=== PATIENT | male | born 1980 | race Two or more races ===

== ENCOUNTER 2025-07-19 15:21 | Inpatient (IN) | payer MEDICAID ==
[~2025-07-19] VITALS: Ht 188 cm; Wt 79.5 kg
[~2025-07-19 15:21] MED LIST: HYDR-4383 PO
[2025-07-19 16:11] LABS: MEAN PLATELET VOLUME 7.7 FL (7.4-10.4); RED CELL DISTRIBUTION WIDTH 16.5 % (11.5-14.5)
[2025-07-19 16:32] LABS: CREATININE 0.56 MG/DL (0.60-1.10); TOTAL CARBON DIOXIDE 24.6 MMOL/L (24-32); eCRCL 183 ML/MIN; eGFR > 90 ML/MIN
--- NOTE | 2025-07-19 16:49 | Physician Documentation ---
History of Present Illness ~ Chief Complaint: ETOH Stated Complaint: ETOH Time Seen by MD: 19:17 HPI This is an otherwise well-appearing 45-year-old male who presents requesting assistance with the cessation of alcohol use, patient reports alcohol use just prior to arrival. Reports history of heavy alcohol abuse. Patient states he gets severe tremors when he has tried to quit drinking. He states he has had to your sober recently but states he has been on a very heavy [place] the last few weeks of drinking copious amounts of alcohol and he is terrified of with drawing off alcohol. He has no other concern or complaint at this time. He states he has severe anxiety and did vomit prior to arrival. Tetanus within 5 years?: No Medication Reconciliation Allergies: Coded Allergies: No Known Allergies (Unverified , 11/11/17) Scheduled Hydrocodone/Acetaminophen ([place] 5-325 Tablet), 1 TAB PO TID PRN Past Medical History Past Medical History: No Pertinent History Past Surgical History: no surgical history Lives with: Spouse, Family Lives In: Home Review of Systems ROS As stated above in the HPI, otherwise all systems are reviewed and negative. Physical Exam Vital Signs: Temperature: 98.3, Source: Temporal, Heart Rate: 105, Respiratory Rate: 18, BP: 144/103, Pulse Oximetry: 96, Weight: 79.550 Oxygen Flow Rate: 0 Physical Exam General: Awake and Alert, no acute distress. Patient is very anxious. HEENT: Conjunctiva pink, Sclera clear, Mucus Membranes moist. Neck: Supple without masses and tenderness. Resp: Unlabored. Lungs clear to auscultation bilaterally. Heart: Regular Rate and rhythm, normal S1 and S2 without murmur, rub or gallop. Abdomen: Soft and non tender no organomegaly Extremities: No cyanosis,clubbing or edema. Skin: Warm and Dry. Progress Results/Orders Results/Orders Orders - SHRUTHI CLARKE PAC Saline Lock (07/19/25 ) Page Hospitalist (07/19/25 21:48) Fill Out Med Reconciliation (07/19/25 21:48) Completed Orders - SHRUTHI CLARKE PAC Normal Saline 1000ml (0.9% Sodium Chlori (07/19/25 20:40) Prochlorperazine Inj (Compazine Inj) (07/19/25 20:45) Olanzapine Tablet (Zyprexa Tablet) (07/19/25 21:41) Medications Received in ER Medications (Trade) Dose Ordered Sig/Heidi Route PRN Reason Start Time Stop Time Status Last Admin Dose Admin Sodium Chloride 1,000 ml @ 1,000 mls/hr ONCE STAT IV 07/19/25 20:40 07/19/25 21:39 DC 07/19/25 22:11 1,000 MLS/HR (Compazine inj) 10 mg ONCE STAT IV 07/19/25 20:45 07/19/25 20:52 DC 07/19/25 22:43 10 MG (ZyPREXA I.M. IM ONLY) 10 mg ONCE ONCE IM 07/19/25 22:25 07/19/25 22:26 DC 07/19/25 22:50 10 MG (Valium inj) 10 mg ONCE ONCE IV 07/19/25 22:25 07/19/25 22:26 DC 07/19/25 22:43 10 MG Vital Signs 07/19/25 07/19/25 07/19/25 15:29 20:27 20:30 Temp 98.3 Pulse 105 67 Resp 18 20 16 B/P (MAP) 144/103 127/91 (103) Pulse Ox 96 98 O2 Flow Rate 0 Laboratory Tests Test 07/19/25 16:01 White Blood Count 3.3 L Red Blood Count 5.33 Hemoglobin 14.1 Hematocrit 42.7 Mean Corpuscular Volume 80.1 Mean Corpuscular Hemoglobin 26.5 L Mean Corpuscular Hemoglobin Concent 33.0 Red Cell Distribution Width 16.5 H Platelet Count 82 L Mean Platelet Volume 7.7 Neutrophils (%) (Auto) 55.1 Lymphocytes (%) (Auto) 27.6 Monocytes (%) (Auto) 14.1 H Eosinophils (%) (Auto) 2.2 Basophils (%) (Auto) 1.0 Neutrophils # (Auto) 1.8 Lymphocytes # (Auto) 0.9 L Monocytes # (Auto) 0.5 Eosinophils # (Auto) 0.1 Basophils # (Auto) 0.0 CBC Comment Sodium Level 135 Potassium Level 3.9 Chloride Level 97 L Carbon Dioxide Level 24.6 Anion Gap 13 Blood Urea Nitrogen 3 L Creatinine 0.56 L Estimated GFR/1.73 m2 > 90 BUN/Creatinine Ratio 5.4 L Glucose Level 167 H Hemoglobin A1c 6.8 H Calcium Level 8.6 Total Bilirubin 0.9 Aspartate Amino Transf (AST/SGOT) 92 H Alanine Aminotransferase (ALT/SGPT) 48 Alkaline Phosphatase 162 H Total Protein 8.6 H Albumin 4.0 Globulin 4.6 H Albumin/Globulin Ratio 0.9 L Lipase 60 Chemistry Comments Ethyl Alcohol Level 366 H Medical Decision Making Findings This is an otherwise well-appearing 45-year-old male who presents requesting assistance with the cessation of alcohol use, patient reports alcohol use just prior to arrival. Reports history of heavy alcohol abuse. Patient states he gets severe tremors when he has tried to quit drinking. He states he has had to your sober recently but states he has been on a very heavy [place] the last few weeks of drinking copious amounts of alcohol and he is terrified of with drawing off alcohol. He has no other concern or complaint at this time. He states he has severe anxiety and did vomit prior to arrival. Patient did have initial CIWA score of 18. Patient will be admitted for alcohol withdrawal. Patient's initial blood alcohol level was 366. I did consult with hospitalist for further eval and treatment. Patient was given Zyprexa 5 mg by mouth in the ED tonight to help treat anxiety in help him sleep. Departure Disposition: ADMITTED INPATIENT Admitted to Inpatient Unit: to hospitalist Admission Level of Care: Med/Surg Impression: Primary Impression: Alcohol withdrawal syndrome Qualified Codes: F10.930 - Alcohol use, unspecified with withdrawal, uncomplicated Additional Impressions: Alcohol abuse Alcohol dependence Qualified Codes: F10.220 - Alcohol dependence with intoxication, uncomplicated Alcoholic intoxication Qualified Codes: F10.920 - Alcohol use, unspecified with intoxication, uncomplicated Condition: Stable Discharge Instructions: Alcohol Intoxication Additional Instructions: Patient did have initial CIWA score of 18. Patient will be admitted for alcohol withdrawal. Patient's initial blood alcohol level was 366. I did consult with hospitalist for further eval and treatment. Patient was given Zyprexa 5 mg by mouth in the ED tonight to help treat anxiety in help him sleep. Referrals: NO PRIMARY CARE PROVIDER (PCP) Signature Scribe Signature: No scribe Attestation: No scribe TRAM AREVALO WARP SPLITTER Jul 19, 2025 16:49 SHRUTHI CLARKE Jul 19, 2025 23:11
[2025-07-19 20:09] LABS: ETHANOL 366 MG/DL (<10)
[2025-07-19] MEDS: normal saline 1000ml 1,000 ML IV STA (22:11)
[2025-07-19] MEDS ORDERED: potassium Cl 40MEQ/1/2NS 520ml 520 ML IV PRN (22:35)
[2025-07-19] MEDS ORDERED: magnesium sulf-water 2g/50mL 50 ML IV PRN (22:35)
[2025-07-19] MEDS ORDERED: potassium Cl 20 mEq SR tablet PO PRN ×2 (22:35)
[2025-07-19] MEDS ORDERED: magnesium Cl slow-release 64mg tablet PO PRN (22:35)
[2025-07-19] MEDS ORDERED: magnesium sulf-water 4G/100mL 100 ML IV PRN (22:35)
[2025-07-19] MEDS ORDERED: ondansetron/PF 4mg/2ml inj IV PRN (22:35)
[2025-07-19] MEDS ORDERED: DEXTROSE 15 GM of carb/4 tabs (each vial/BOTTLE has 4 tablets) PO PRN ×2 (22:40)
[2025-07-19] MEDS ORDERED: dextrose 50%-water 50ml dispensing syringe IV PRN ×2 (22:40)
[2025-07-19] MEDS ORDERED: glucagon, human recombinant 1mg kit SUBCUT PRN (22:40)
[2025-07-19] MEDS: diazepam inj 5 MG/ML inj. IV ONE (22:43)
[2025-07-19] MEDS: OLANZapine **IM** 10 mg inj. IM ONE (22:50)
[2025-07-19] MEDS ORDERED: METF-1203 PO (23:12)
[2025-07-19] MEDS ORDERED: PANT40TA54 PO (23:12)
[2025-07-19] MEDS ORDERED: NALT50TA5 PO (23:12)
--- NOTE | 2025-07-19 23:36 | HISTORY AND PHYSICAL-Residence ---
History & Physical Providers to CC Resident Creating Document: NEIL GARCIAAGUSTIN ~ History of Present Illness Reason for Admit\Complaint: ETOH Withdrawal History of Present Illness The patient is a 45-year-old Thai-speaking male with limited Georgian proficiency, history of alcohol use disorder and alcoholic liver cirrhosis, who presents to the ED with alcohol withdrawal symptoms. His and autistic son are present at bedside and assists with the history. He reports heavy alcohol use since age 14, drinking approximately 30 beers daily. His last alcohol intake was in the hospital parking lot just prior to arrival, where he consumed six beers. He describes feeling tremulous, anxious, and extremely nervous. On exam, he is severely agitated, diaphoretic with beads of sweat on his forehead, and demonstrates tremor with arms extended. He denies nausea, vomiting, hallucination, or seizures. However, he does report a prior episode of auditory hallucination two months ago at home, without seizures. He has not had recent infectious symptoms. Past significant events include an admission at [facility] three years ago for massive esophageal variceal bleeding, during which she required ICU care with intubation and removal of 6 L of ascitic fluid. At this visit, he is tearful and emotionally distressed, repeatedly stating he wants to quit drinking and asking for help. Allergies: Coded Allergies: No Known Allergies (Unverified , 11/11/17) Home Medications Home Medications Active [place] 5-325 Tablet (Hydrocodone/Acetaminophen) 1 Each Tablet 1 Tab PO TID PRN 5 Days Reported Naltrexone Hcl 50 Mg Tablet 1 Tab PO DAILY Pantoprazole Sodium 40 Mg Tablet. 1 Tab PO BID Metformin HCl 500 Mg Tablet 1 Tab PO BID Past Medical History Past Medical History Heavy alcohol use disorder, alcohol withdrawal, history of massive esophageal varices bleeding; admitted at [facility] in ICU, required intubation Past Surgical History Surgical History Comment Noncontributory Past Social History Social History Comment Heavy alcohol use disorder; 30 pack of beers per day. Denies smoking or recreational drugs. Lives with his in his autistic son. Lives with: Spouse, Family Lives In: Home ROS All Other Systems: Reviewed and Negative ROS As stated above in the HPI, otherwise all systems are reviewed and negative. Exam Vitals: Vital Signs Date Time Temp Pulse Resp B/P (MAP) Pulse Ox O2 Delivery O2 Flow Rate FiO2 07/19/25 20:30 16 07/19/25 20:27 67 98 07/19/25 15:29 98.3 0 General: Severely agitated, diaphoretic HEENT: Conjunctiva pink, Sclera clear, Mucus Membranes dry Neck: Supple without masses and tenderness. Resp: Unlabored. Lungs clear to auscultation bilaterally. Heart: Regular Rate and rhythm, normal S1 and S2 without murmur, rub or gallop. Abdomen: Soft and non tender no organomegaly Extremities: Tremulous while arms extended Neurology: No neurological deficit Skin: Warm and Dry. Diagnostic Data Last Recorded Lab Results: 07/19/25 1601 07/19/25 1601 Advance Care Planning Advanced Care plannin - 30 Minutes Additional Plan Assessment and plan 45-year-old Thai-speaking male with alcohol use disorder and alcoholic cirrhosis, presenting with alcohol withdrawal. History significant for prior esophageal variceal bleeding (ICU admission, intubation, paracentesis for 6 L ascites, three years ago) and auditory hallucination two months ago. Currently severely agitated, anxious, tremulous, diaphoretic, denies nausea, vomiting, seizure, or or hallucination at this visit. Last drink just prior to ED arrival. 1. Alcohol Withdrawal; KYREE (Alcohol Withdrawal Symptoms): Autonomic symptoms; palpitations, sweating, tachycardia,severe agitation, tremor, diaphoresis, and anxiety CIWA-Ar Score: 20 Symptom-triggered regimen for KYREE - CIWA protocol in place Fixed-schedule regimen for KYREE: Ativan 2 mg every 6 hours scheduled Transition to P.O: Transition to Chlordiazepoxide 25 mg PO every 6 hours on day 1, every 8 hours on day 2, every12 hours on day 3, every 24 hours (at night) on days 4 and 5, then discontinue Continue thiamine and folic acid IV visitor services assistant consulted Monitor for delirium tremens; hallucinations, seizure, autonomic instability 2. Alcoholic cirrhosis/decompensation risk History of massive variciel bleeding, and large volume ascites Current labs; AST > ALT (classic alcoholic pattern), alk-phos elevated, albumin preserved at four, bilirubin normal Lactulose, carvedilol, and spironolactone started, continue after discharge Follow up abdominal ultrasound and serum alpha fetoprotein Follow up on PT, APTT, and INR Monitor for GI bleed monitor for GI bleeding Monitor INR bilirubin, creatinine, sodium for MELD calculation. INR pending now 3. Cytopenias (thrombocytopenia and leukopenia) Platelet [id number], WBC 3.3, consistent with portal hypertension and marrow suppression Monitor CBC daily 4. Type 2 diabetes mellitus A1c 6.8, diet controlled Not on home medications Currently controlled with diet and lifestyle Hyperglycemia/hypoglycemia protocol in place 5. Psychosocial/addiction support Patient is motivated, explicitly asking for help to quit drinking Involve addiction medicine, and social work for rehab options, and long-term recovery planning Code status: Full code DVT prophylaxis: Lovenox Disposition: Admitted to PCU for severe alcohol withdrawal, monitoring for cirrhosis complications, cytopenias, and potential GI bleeding Neil Garcia Internal Medicine Resident I discussed the assessment and plan with the resident and agree with it with no changes. Kate Gutierrez MD Critical Care Date of Service: Jul 19, 2025 Billing Provider: KATE GUTIERREZ MD,NEIL, RES Jul 19, 2025 23:36 KATE GUTIERREZ MD Jul 20, 2025 20:30
[2025-07-19 23:45] LABS: LEUKOCYTE ESTERASE ,URINE NEGATIVE (Neg); NITRITES, URINE NEGATIVE (Neg); OCCULT BLOOD,URINE NEGATIVE (Neg)
[2025-07-19 23:46] LABS: UA COLLECTION TYPE URINAL
[2025-07-20] VITALS (10 sets, daily range): BP systolic 103–135; BP diastolic 70–82; PULSE 69–93; RESP 10–18; TEMP 96.9–97.6; O2SAT 94–100
[2025-07-20 00:07] LABS: URINE AMPHETAMINE SCREEN NEGATIVE (Neg); URINE BARBITUATE SCREEN NEGATIVE (Neg); URINE BENZODIAZEPINES SCREEN POSITIVE (Neg); URINE CANNABINOID SCREEN NEGATIVE (Neg); URINE COCAINE SCREEN NEGATIVE (Neg); URINE METHADONE SCREEN NEGATIVE (Neg); URINE OPIATE SCREEN NEGATIVE (Neg); URINE PHENCYCLIDINE SCREEN NEGATIVE (Neg)
[2025-07-20] MEDS: enoxaparin 40mg/0.4ml syringe SQ SCH (00:10)
[2025-07-20] MEDS: normal saline 1000ml 1,000 ML IV SCH (00:15)
[2025-07-20 06:58] LABS: APTT 31 SECONDS (22-32); INR 1.2 INR
[2025-07-20 06:59] LABS: MEAN PLATELET VOLUME 8.3 FL (7.4-10.4); RED CELL DISTRIBUTION WIDTH 16.5 % (11.5-14.5)
[2025-07-20] MEDS: INSULIN LISPRO 100 UNIT/ML INSULN.PEN MULTI-DOSE SQ SCH (07:00)
[2025-07-20 07:13] LABS: CHOL/HDL RATIO 2.0 (0.00-4.99); CREATININE 0.59 MG/DL (0.60-1.10); LDL CHOLESTEROL 65 MG/DL (50-100); PHOSPHORUS 3.7 MG/DL (2.3-4.5); TOTAL CARBON DIOXIDE 24.6 MMOL/L (24-32); eCRCL 174 ML/MIN; eGFR > 90 ML/MIN
[2025-07-20 07:52] LABS: BASOPHILS % (MANUAL) 1.0 % (0-1); EOSINOPHILS % (MANUAL) 5.0 % (0-6); LARGE PLATELETS FEW; LYMPHOCYTES % (MANUAL) 29.0 % (21-51); MONOCYTES % (MANUAL) 11.0 % (2-12); NEUTROPHILS % (MANUAL) 54.0 % (42-75); PLATELET ESTIMATE DECREASED
[2025-07-20] MEDS ORDERED: heparin, porcine 5000 units/ml vial SQ SCH (08:00)
[2025-07-20] MEDS: K and/or MAG REPLACEMENT MC SCH (08:00)
[2025-07-20] MEDS: multivitamins, therapeutics tablet PO SCH (08:39)
[2025-07-20] MEDS: thiamine 100mg/ml 2ml inj. IV SCH (08:40)
[2025-07-20] MEDS: lactulose 20gm/30ml cup PO SCH (08:40)
--- NOTE | 2025-07-20 09:21 | RADIOLOGY REPORT ---
INDICATION: h/o alcoholic cirrhosis TECHNIQUE: Multiple real-time sonographic images of the abdomen were obtained. COMPARISON: None FINDINGS: Hepatic cirrhosis. Liver measures 16 cm. The gallbladder wall measures 0.3 cm and is unremarkable. No gallstones or sludge is seen. The commo n duct measures 0.3 cm and is unremarkable. No pericholecystic fluid is noted. The right kidney measures 12.9 cm. No hydronephrosis. The pancreas is not well visualized due to obscuration from bowel gas. The visualized portions of the IVC and aorta are grossly unremarkable. IMPRESSION: Hepatic cirrhosis. Gallbladder sludge Small pericholecystic fluid.
[2025-07-20] MEDS ORDERED: VITA400T10 PO (11:44)
[2025-07-20] MEDS ORDERED: CHOL20003 PO (11:44)
[2025-07-20] MEDS ORDERED: CHLO25CA10 PO (11:44)
[2025-07-20] MEDS ORDERED: VITA-268 PO (11:44)
--- NOTE | 2025-07-20 12:29 | PROGRESS NOTE- Residence ---
Progress Note - Resident Providers to CC Resident Creating Document: FADIA COFFEY RES ~ Antibiotic Timeout Antibiotic Ordered?: No Subjective Patient is seen and examined at bedside. He is awake, tolerating oral diet, denies any more tremors or nausea. He is interested in resources to stop drinking. Objective Vital Signs Date Time Temp Pulse Resp B/P (MAP) Pulse Ox O2 Delivery O2 Flow Rate FiO2 07/20/25 08:40 93 07/20/25 08:00 12 95 Room Air 07/20/25 06:00 96.9 104/70 (81) 2.0 Result Diagram: 07/20/25 0553 07/20/25 0553 General: awake, alert, oriented HEENT: Conjunctiva pink, Sclera clear, Mucus Membranes dry Neck: Supple without masses and tenderness. Resp: Unlabored. Lungs clear to auscultation bilaterally. Heart: Regular Rate and rhythm, normal S1 and S2 without murmur, rub or gallop. Abdomen: Soft and non tender no organomegaly Extremities: Trace hand tremor. Neurology: No neurological deficit Skin: Warm and Dry. Coagulation Studies Laboratory Tests Test 07/20/25 05:53 Prothrombin Time 12.1 SECONDS (9.0-12.0) H INR International Normalized Ratio 1.2 INR Activated Partial Thromboplast Time 31 SECONDS (22-32) Coagulation Comments Plan Plan Assessment and plan 45-year-old German-speaking male with alcohol use disorder and alcoholic cirrhosis, admitted for alcohol withdrawal. History significant for prior esophageal variceal bleeding (ICU admission, intubation, paracentesis for 6 L ascites, three years ago) and auditory hallucination two months ago. At presentation he was severely agitated, anxious, tremulous, diaphoretic, denies nausea, vomiting, seizure, or or hallucination at this visit. Last drink just prior to ED arrival. He doesn't have any other complaint. He is now able to tolerate oral diet. 1.Alcohol Withdrawal; Assessment: KYREE (Alcohol Withdrawal Symptoms): Autonomic symptoms; palpitations, sweating, tachycardia,severe agitation, tremor, diaphoresis, and anxiety at presentation CIWA-Ar Score: 20 Plan Symptom-triggered regimen for KYREE - CIWA protocol in place Fixed-schedule regimen for KYREE: Ativan 2 mg every 6 hours scheduled Transition to P.O: Transition to Chlordiazepoxide 25 mg PO every 6 hours on day 1, every 8 hours on day 2, every12 hours on day 3, every 24 hours (at night) on days 4 and 5, then discontinue Continue thiamine and folic acid IV cargo and ramp services manager consulted 07/20/2025 Continue alcohol withdraw protocol Continue fall and aspiration precautions Plan to decrease NS if he continues to accept oral diet 2. Alcoholic cirrhosis - compensated Assessment Child-Osborn A History of massive variciel bleeding, and large volume ascites Current labs; AST > ALT (classic alcoholic pattern), alk-phos elevated, albumin preserved at four, bilirubin normal Plan Lactulose, carvedilol, and spironolactone started, continue after discharge Follow up abdominal ultrasound and serum alpha fetoprotein Follow up on PT, APTT, and INR Monitor for GI bleed monitor for GI bleeding Monitor INR bilirubin, creatinine, sodium for MELD calculation. INR pending now 07/20/25 AST 72, ALT 42, INR 12.1 Abdomen US: Hepatic cirrhosis. Gallbladder sludge. Small pericholecystic fluid. Pending AFP 3. thrombocytopenia and leukopenia Assessement Platelet [id number], WBC 3.3, consistent with portal hypertension and marrow suppression Plan - 07/20/25 Platelet [id number], WBC 2.2, Hb 12.6, MCV 80.3 Hb 12.6 Monitor CBC daily The patient will need outpatient hematology follow-up 4. Type 2 diabetes mellitus - controlled Assessment A1c 6.8, diet controlled Not on home medications Currently controlled with diet and lifestyle Plan - 07/20/2025 Hyperglycemia/hypoglycemia protocol in place Patient might benefit of oral antiglycemic therapy Code Status: Full code DVT prophylaxis: Lovenox Analgesia: Tylenol Line/tube: PIV GI prophylaxis: Pantoprazole Nutrition: 75 carg diet Prognosis: Guarded Disposition: Continue medical treatment. Resident MD attestation The above note has been reviewed and supervised by a senior resident PGY2/PGY3 Patient was seen, examined and discussed with the attending physician Date of Service: Jul 20, 2025 Billing Provider: EWA GUIDO MD Common Visit Codes: [id number] INP/OBS CARE(HIGH) FADIA COFFEY RES Jul 20, 2025 12:29 EWA GUIDO MD Jul 20, 2025 18:36
[2025-07-21 02:00] VITALS: BP 136/78; PULSE 66; RESP 20; TEMP 97.4; O2SAT 94
[2025-07-21 06:00] VITALS: BP 106/72; PULSE 73; RESP 20; TEMP 97.4; O2SAT 97
[2025-07-21 07:04] LABS: MEAN PLATELET VOLUME 8.0 FL (7.4-10.4); RED CELL DISTRIBUTION WIDTH 16.5 % (11.5-14.5)
[2025-07-21 07:12] LABS: APTT 30 SECONDS (22-32); INR 1.2 INR
[2025-07-21 07:49] LABS: BANDS% (MANUAL) 1.0 % (0-10); EOSINOPHILS % (MANUAL) 1.0 % (0-6); LYMPHOCYTES % (MANUAL) 24.0 % (21-51); MONOCYTES % (MANUAL) 10.0 % (2-12); NEUTROPHILS % (MANUAL) 64.0 % (42-75); PLATELET ESTIMATE DECREASED
[2025-07-21] MEDS: pantoprazole 40mg Tablet.DR PO SCH (07:53)
[2025-07-21 07:58] LABS: CREATININE 0.60 MG/DL (0.60-1.10); PHOSPHORUS 3.1 MG/DL (2.3-4.5); TOTAL CARBON DIOXIDE 26.2 MMOL/L (24-32); eCRCL 171 ML/MIN; eGFR > 90 ML/MIN
[2025-07-21 08:10] VITALS: RESP 18; O2SAT 97
[2025-07-21 08:20] VITALS: BP_SYST 131; PULSE 85
[2025-07-21] MEDS ORDERED: MULT-25 PO (10:57)
[2025-07-21] MEDS ORDERED: THIA100T70 PO (10:57)
[2025-07-21] MEDS ORDERED: FOLI1TAB27 PO (10:57)
--- NOTE | 2025-07-21 11:51 | DISCHARGE SUMMARY-Residence ---
Discharge Summary Providers to CC Resident Creating Document: FADIA COFFEY RES ~ Discharge Summary Admission Diagnosis: ETHO withdrawal, alcoholic liver cirrhosis Hospital Course DATE OF ADMISSION: 07/19/2025 DATE OF DISCHARGE: 07/21/2025 Abdomen ultrasound: Hepatic cirrhosis. Gallbladder sludge. Small pericholecystic fluid. Laboratory Tests Test 07/19/25 16:01 07/19/25 22:59 07/20/25 00:05 07/20/25 00:21 White Blood Count 3.3 X10'3 Red Blood Count 5.33 X10'6 Hemoglobin 14.1 g/dl Hematocrit 42.7 % Mean Corpuscular Volume 80.1 FL Mean Corpuscular Hemoglobin 26.5 PG Mean Corpuscular Hemoglobin Concent 33.0 g/dL Red Cell Distribution Width 16.5 % Platelet Count 82 X10'3 Mean Platelet Volume 7.7 FL Neutrophils (%) (Auto) 55.1 % Lymphocytes (%) (Auto) 27.6 % Monocytes (%) (Auto) 14.1 % Eosinophils (%) (Auto) 2.2 % Basophils (%) (Auto) 1.0 % Neutrophils # (Auto) 1.8 X10'3 Lymphocytes # (Auto) 0.9 X10'3 Monocytes # (Auto) 0.5 X10'3 Eosinophils # (Auto) 0.1 X10'3 Basophils # (Auto) 0.0 X10'3 CBC Comment Sodium Level 135 MMOL/L Potassium Level 3.9 MMOL/L Chloride Level 97 MMOL/L Carbon Dioxide Level 24.6 MMOL/L Anion Gap 13 Blood Urea Nitrogen 3 MG/DL Creatinine 0.56 MG/DL Estimated GFR/1.73 m2 > 90 ML/MIN BUN/Creatinine Ratio 5.4 Glucose Level 167 MG/DL Hemoglobin A1c 6.8 % Calcium Level 8.6 MG/DL Total Bilirubin 0.9 MG/DL Aspartate Amino Transf (AST/SGOT) 92 U/L Alanine Aminotransferase (ALT/SGPT) 48 U/L Alkaline Phosphatase 162 IU/L Total Protein 8.6 G/DL Albumin 4.0 G/DL Globulin 4.6 G/DL Albumin/Globulin Ratio 0.9 Lipase 60 U/L Chemistry Comments Ethyl Alcohol Level 366 MG/DL Urine Specimen Description Urinal Urine Color Yellow Urine Clarity Clear Urine pH 6.0 Urine Specific [place] <=1.005 Urine Protein Negative mg/dl Urine Glucose (UA) Negative mg/dl Urine Ketones Negative mg/dl Urine Occult Blood Negative Urine Nitrite Negative Urine Bilirubin Negative Urine Urobilinogen 0.2 E.U/dL Urine Leukocyte Esterase Negative Urine Culture Indicated Not ind Volume Urine Centrifuged 10 ml Urine Comment Urine Opiates Screen Negative Urine Methadone Screen Negative Urine Fentanyl Screen Negative Urine Barbiturates Screen Negative Urine Phencyclidine Screen Negative Urine Amphetamines Screen Negative Urine Benzodiazepines Screen Positive Urine Cocaine Screen Negative Urine Cannabinoids Screen Negative Drug Screen Comment Glucometer 113 mg/dl Test 07/20/25 05:53 07/20/25 07:07 07/20/25 12:30 07/20/25 17:08 White Blood Count 2.2 X10'3 Red Blood Count 4.69 X10'6 Hemoglobin 12.6 g/dl Hematocrit 37.7 % Mean Corpuscular Volume 80.3 FL Mean Corpuscular Hemoglobin 26.9 PG Mean Corpuscular Hemoglobin Concent 33.5 g/dL Red Cell Distribution Width 16.5 % Platelet Count 58 X10'3 Mean Platelet Volume 8.3 FL Neutrophils (%) (Auto) 49.0 % Lymphocytes (%) (Auto) 33.1 % Monocytes (%) (Auto) 14.2 % Eosinophils (%) (Auto) 2.3 % Basophils (%) (Auto) 1.4 % Neutrophils # (Auto) 1.1 X10'3 Lymphocytes # (Auto) 0.7 X10'3 Monocytes # (Auto) 0.3 X10'3 Eosinophils # (Auto) 0.1 X10'3 Basophils # (Auto) 0.0 X10'3 CBC Comment Differential Total Cells Counted 100 Neutrophils % (Manual) 54.0 % Lymphocytes % (Manual) 29.0 % Monocytes % (Manual) 11.0 % Eosinophils % (Manual) 5.0 % Basophils % (Manual) 1.0 % Platelet Estimate Decreased Large Platelets Few Red Blood Cell Morphology Perf Basophilic Stippling Anisocytosis 1+ Prothrombin Time 12.1 SECONDS INR International Normalized Ratio 1.2 INR Activated Partial Thromboplast Time 31 SECONDS Coagulation Comments Sodium Level 138 MMOL/L Potassium Level 3.8 MMOL/L Chloride Level 104 MMOL/L Carbon Dioxide Level 24.6 MMOL/L Anion Gap 9 Blood Urea Nitrogen 3 MG/DL Creatinine 0.59 MG/DL Estimated GFR/1.73 m2 > 90 ML/MIN BUN/Creatinine Ratio 5.1 Glucose Level 90 MG/DL Calcium Level 8.0 MG/DL Phosphorus Level 3.7 MG/DL Magnesium Level 1.8 MG/DL Total Bilirubin 0.9 MG/DL Aspartate Amino Transf (AST/SGOT) 72 U/L Alanine Aminotransferase (ALT/SGPT) 42 U/L Alkaline Phosphatase 139 IU/L Total Protein 7.7 G/DL Albumin 3.6 G/DL Globulin 4.1 G/DL Albumin/Globulin Ratio 0.9 Triglycerides Level 79 MG/DL Cholesterol Level 164 MG/DL LDL Cholesterol 65 MG/DL HDL Cholesterol 81 MG/DL Cholesterol/HDL Ratio 2.0 Amylase Level 58 U/L Lipase 45 U/L Chemistry Comments Glucometer 90 mg/dl 185 mg/dl 141 mg/dl Test 07/20/25 20:08 07/21/25 06:12 07/21/25 07:32 Glucometer 250 mg/dl 109 mg/dl White Blood Count 1.9 X10'3 Red Blood Count 4.58 X10'6 Hemoglobin 12.3 g/dl Hematocrit 37.0 % Mean Corpuscular Volume 80.8 FL Mean Corpuscular Hemoglobin 26.8 PG Mean Corpuscular Hemoglobin Concent 33.2 g/dL Red Cell Distribution Width 16.5 % Platelet Count 40 X10'3 Mean Platelet Volume 8.0 FL Neutrophils (%) (Auto) 62.6 % Lymphocytes (%) (Auto) 20.7 % Monocytes (%) (Auto) 13.0 % Eosinophils (%) (Auto) 2.7 % Basophils (%) (Auto) 1.0 % Neutrophils # (Auto) 1.2 X10'3 Lymphocytes # (Auto) 0.4 X10'3 Monocytes # (Auto) 0.2 X10'3 Eosinophils # (Auto) 0.1 X10'3 Basophils # (Auto) 0.0 X10'3 CBC Comment Differential Total Cells Counted 100 Neutrophils % (Manual) 64.0 % Band Neutrophils % 1.0 % Lymphocytes % (Manual) 24.0 % Monocytes % (Manual) 10.0 % Eosinophils % (Manual) 1.0 % Platelet Estimate Decreased Red Blood Cell Morphology Perf Basophilic Stippling Anisocytosis 1+ Prothrombin Time 12.4 SECONDS INR International Normalized Ratio 1.2 INR Activated Partial Thromboplast Time 30 SECONDS Coagulation Comments Sodium Level 135 MMOL/L Potassium Level 3.6 MMOL/L Chloride Level 102 MMOL/L Carbon Dioxide Level 26.2 MMOL/L Anion Gap 7 Blood Urea Nitrogen 4 MG/DL Creatinine 0.60 MG/DL Estimated GFR/1.73 m2 > 90 ML/MIN BUN/Creatinine Ratio 6.7 Glucose Level 112 MG/DL Calcium Level 8.4 MG/DL Phosphorus Level 3.1 MG/DL Magnesium Level 1.8 MG/DL Total Bilirubin 1.5 MG/DL Aspartate Amino Transf (AST/SGOT) 79 U/L Alanine Aminotransferase (ALT/SGPT) 43 U/L Alkaline Phosphatase 158 IU/L Total Protein 7.3 G/DL Albumin 3.4 G/DL Globulin 3.9 G/DL Albumin/Globulin Ratio 0.9 Amylase Level 64 U/L Lipase 49 U/L Chemistry Comments Discharge Diagnosis\Comment: 1.Alcohol Withdrawal; 2. Alcoholic cirrhosis - compensated; 3. thrombocytopenia and leukopenia; 4. Type 2 diabetes mellitus - controlled Operations\Procedures: None Consultants: None Complications: None Condition on DC: Stable New Medications: Thiamine Mononitrate (Vitamin B-1) 100 Mg Tablet 1 TAB PO DAILY for 30 Days, #30 TAB 0 Refills Folic Acid* (Folic Acid*) Y Tab 1 MG PO DAILY for 30 Days, #30 TAB Multivitamin with Folic Acid (Thera Tablet) 400 Mcg Tablet 1 EACH PO Q24H for 30 Days, #30 TAB Continued Medications: Chlordiazepoxide HCl (Chlordiazepoxide HCl) 25 Mg Capsule 1 TAB PO DAILY Cholecalciferol (Vitamin D3) (Vitamin D3) 50 Mcg (2000 Unit) Tablet 1 TAB PO DAILY for 30 Days, #30 TAB 0 Refills Metformin HCl (Metformin HCl) 500 Mg Tablet 1 TAB PO BID Naltrexone Hcl (Naltrexone Hcl) 50 Mg Tablet 1 TAB PO DAILY Pantoprazole Sodium (Pantoprazole Sodium) 40 Mg Tablet.dr 1 TAB PO BID Vitamin E Mixed (Vitamin E) 400 Unit Tablet 1 TAB PO DAILY for 30 Days, #30 TAB 0 Refills Discontinued Medications: Vitamin B Complex (B Complex) 1 Each Tablet 1 TAB PO DAILY for 30 Days, #30 TAB 0 Refills Discharge Summary: HPI at presentation The patient is a 45-year-old history of alcohol use disorder and alcoholic liver cirrhosis, who presents to the ED with alcohol withdrawal symptoms. His and autistic son are present at bedside and assists with the history. He reports heavy alcohol use since age 14, drinking approximately 30 beers daily. His last alcohol intake was in the hospital parking lot just prior to arrival, where he consumed six beers. He describes feeling tremulous, anxious, and extremely nervous. On exam, he is severely agitated, diaphoretic with beads of sweat on his forehead, and demonstrates tremor with arms extended. He denies nausea, vomiting, hallucination, or seizures. However, he does report a prior episode of auditory hallucination two months ago at home, without seizures. He has not had recent infectious symptoms. Past significant events include an admission at [facility] three years ago for massive esophageal variceal bleeding, during which she required ICU care with intubation and removal of 6 L of ascitic fluid. At this visit, he is tearful and emotionally distressed, repeatedly stating he wants to quit drinking and asking for help. Hospital course 45-year-old with alcohol use disorder and alcoholic cirrhosis, admitted for alcohol withdrawal. History significant for prior esophageal variceal bleeding (ICU admission, intubation, paracentesis for 6 L ascites, three years ago) and auditory hallucination two months ago. At presentation he was severely agitated, anxious, tremulous, diaphoretic, denies nausea, vomiting, seizure, or or hallucination at this visit. Last drink just prior to ED arrival. He doesn't have any other complaint. He is now able to tolerate oral diet. During hospitalization the patient remained asymptomatic, tolerating oral diet without nausea, vomiting or abdominal pain. He asks to be discharge because he needs to go for a fingerprint. No complications seen while in the hospital. Patient is stable to be discharged. Discharge physical exam General: awake, alert, oriented HEENT: Conjunctiva pink, Sclera clear, Mucus Membranes slightly dry Neck: Supple without masses and tenderness. Resp: Unlabored. Lungs clear to auscultation bilaterally. Heart: Regular Rate and rhythm, normal S1 and S2 without murmur, rub or gallop. Abdomen: Soft and non tender no organomegaly Extremities: Trace hand tremor. Neurology: No neurological deficit Skin: Warm and Dry. Discharge medications Described above Discharge instructions Follow-up with your primary care physician in 1-2 weeks Follow-up with hematology to further investigation of the hematologic changes Abstain from alcohol use Repeat your liver enzimes with your PCP in 1 week Take metformin 500mg twice a day Take folic acid, thiamine and pantoprazole daily Eat a carb controlled diet and exercise regularly Fall precautions Do not drive under influence of alcohol Come back in case of vomiting, abdominal pain, persistent fever, diarrhea, chest pain, shortness of breath or any concerning symptoms *Problems/Diagnosis: (1) Diabetes mellitus Status: Chronic (2) Thrombocytopenia Status: Chronic (3) Leukopenia Status: Chronic (4) Alcohol withdrawal syndrome Status: Acute (5) Alcohol abuse Status: Chronic (6) Alcoholic intoxication Status: Acute (7) Alcohol dependence Status: Chronic Total Time Spent on D/C: > 30 Minutes Date of Service: Jul 21, 2025 Billing Provider: EWA GUIDO MD Common Visit Codes: 62841-[id number] DISCH DAY >30min Problem Qualifiers (1) Diabetes mellitus: Diabetes mellitus type: type 2 (2) Alcohol withdrawal syndrome: Complication of substance-induced condition: uncomplicated Qualified Codes: F10.930 - Alcohol use, unspecified with withdrawal, uncomplicated (3) Alcoholic intoxication: Complication of substance-induced condition: uncomplicated Qualified Codes: F10.920 - Alcohol use, unspecified with intoxication, uncomplicated (4) Alcohol dependence: Substance use status: with intoxication Complication of substance-induced condition: uncomplicated Qualified Codes: F10.220 - Alcohol dependence with intoxication, uncomplicated FADIA COFFEY RES Jul 21, 2025 11:41 EWA GUIDO MD Jul 21, 2025 17:03
[2025-07-21] MEDS ORDERED: CHLO25CA10 PO (13:07)
== END 2025-07-21 13:39 | disposition home or self-care (01) | DRG 775 ==
LOC: ER 15:21 → ED HOLD 22:36 → PCU 3S 23:35
PROVIDERS: ADMIT Internal Medicine Pulmonary Disease; ATTEND Internal Medicine
DX: F10.220 Alcohol dependence with intoxication, uncomplicated (principal); D69.6 Thrombocytopenia, unspecified; K74.69 Other cirrhosis of liver; F10.230 Alcohol dependence with withdrawal, uncomplicated; D72.818 Other decreased white blood cell count; E11.9 Type 2 diabetes mellitus without complications
CPT/HCPCS: 36415; 76700; 80053; 80061; 80305; 80320; 81003; 82103; 82150; 82948; 83036; 83690; 83735; 84100; 85007; 85025; 85610; 85730; 87081; 96361; 96372; 96374; 96375; 99285; A4615; A6590; G0378; J0780; J1815; J2060; J3360; J3411; J3490; J7030